=== PATIENT | female | born 1940 | race Caucasian/White ===

== ENCOUNTER 2016-05-06 18:17 | Emergency (ER) | payer MEDICARE, OTHER ==
[~2016-05-06 18:17] MED LIST: ATIVAN0.5 MG PO; LASIX20 MG PO; PRILOSEC40 MG PO; ZEBETA10 MG PO
== END 2016-05-06 20:30 | disposition home or self-care (01) ==
LOC: FER 18:17
DX: I10 Essential (primary) hypertension (principal); Z79.899 Other long term (current) drug therapy
CPT/HCPCS: 99283

== ENCOUNTER 2020-03-07 17:09 | Emergency (ER) | payer MEDICARE, OTHER ==
[~2020-03-07 17:09] MED LIST changes: +AMLODIPINE BESYL5 MG PO; +BISOPROLOL FUMAR5 MG PO; +HYDROXYZINE HCL50 MG PO; +PAROXETINE 10MG10 MG PO; +PERCOCET 5-3251 EACH PO; +PRILOSEC20 MG PO; -PRILOSEC40 MG PO; +XARELTO10 MG PO; -ZEBETA10 MG PO
== END 2020-03-07 19:50 | disposition home or self-care (01) ==
LOC: FER 17:09
DX: I10 Essential (primary) hypertension (principal); Z79.899 Other long term (current) drug therapy; Z88.5 Allergy status to narcotic agent
CPT/HCPCS: 99283